=== PATIENT | female | born 1960 | race Two or more races ===

== ENCOUNTER 2017-10-25 10:37 | Inpatient (IN) | payer OTHER ==
[~2017-10-25] VITALS: Ht 170.2 cm; Wt 67.8 kg
[2017-10-25] MEDS ORDERED: ONDANSETRON 2MG/ML, 2ML ONE (10:55)
[2017-10-25] MEDS ORDERED: FAMOTIDINE 20 MG/2 ML ONE (10:55)
[2017-10-25] MEDS ORDERED: MORPHINE SULFATE 4 MG/ML, 1ML ONE ×2 (10:55→13:24)
[2017-10-25] MEDS ORDERED: PLEASE ENTER HEIGHT AND WEIGHT MC SCH (11:00)
[2017-10-25] MEDS ORDERED: SODIUM CHLORIDE FLUSH 10ML SYR IVF ONE (11:00)
[2017-10-25] MEDS ORDERED: FAMOTIDINE 20 MG/2 ML IVP ONE (11:00)
[2017-10-25] MEDS ORDERED: SODIUM CHLORIDE 0.9% 1,000ML IVBOLUS ONE (11:00)
[2017-10-25] MEDS ORDERED: PLEASE ENTER ALLERGIES MC SCH (11:00)
[2017-10-25] MEDS ORDERED: ONDANSETRON 2MG/ML, 2ML IVPush ONE (11:00)
[2017-10-25] MEDS: MORPHINE SULFATE 4 MG/ML, 1ML IVPush PRN ×2 (11:06→13:38)
[2017-10-25 11:24] LABS: BASOPHILS # (AUTO) 0.03 x10^3/uL (0-0.1); BASOPHILS % (AUTO) 0 % (0-1); EOSINOPHILS % (AUTO) 0 % (1-7); LYMPHOCYTES # (AUTO) 1.38 x10^3/uL (1-3.4); LYMPHOCYTES % (AUTO) 10 % (22-44); MD NO; MEAN CORPUSCULAR HEMOGLOBIN 29.4 pg (27.0-34.8); MEAN CORPUSCULAR HGB CONC 33.6 g/dL (32.4-35.8); MEAN CORPUSCULAR VOLUME 87.6 fL (80-100); MONOCYTES # (AUTO) 0.32 x10^3/uL (0.2-0.8); MONOCYTES % (AUTO) 2 % (2-9); NEUTROPHILS # (AUTO) 11.64 x10^3/uL (1.8-6.8); NEUTROPHILS % (AUTO) 87 % (42-75); PLATELET COUNT 259 x10^3/uL (130-400)
[2017-10-25 11:37] LABS: ALANINE AMINOTRANSFERASE 30 U/L (12-78); ALBUMIN 4.3 g/dL (3.4-5.0); ANION GAP 13 mmol/L (5-15); CHLORIDE 105 mmol/L (98-107); CREATININE 0.77 mg/dL (0.55-1.02)
[2017-10-25 11:39] LABS: ALKALINE PHOSPHATASE 162 U/L (45-117); BILIRUBIN,TOTAL 0.5 mg/dL (0.2-1.0); TOTAL PROTEIN 9.1 g/dL (6.4-8.2)
[2017-10-25] MEDS ORDERED: OMNIPAQUE 350 MG/ML, 100ML BOTTLE ONE (12:14)
[2017-10-25] MEDS ORDERED: BENZOCAINE 20% SPRAY 0.5ML ONE (13:24)
[2017-10-25] MEDS ORDERED: BENZOCAINE 20% SPRAY 0.5ML TP ONE (13:30)
[2017-10-25 14:38] VITALS: BP 113/73
[2017-10-25] MEDS ORDERED: morphine SULFATE 10 MG/ML, 1ML IVPush PRN (17:00)
[2017-10-25] MEDS ORDERED: ONDANSETRON 2MG/ML, 2ML IVPush PRN (17:00)
[2017-10-25] MEDS ORDERED: KETOROLAC 30 MG/1 ML IVPush ONE (17:00)
[2017-10-25] MEDS: D5%-LR+KCL 20MEQ 1,000 ML IV SCH (17:37)
[2017-10-25 18:39] LABS: MICROSCOPIC NOT IND
[2017-10-25 18:49] LABS: CULTURE INDICATED? NO
[2017-10-25 19:22] VITALS: BP 101/63
[2017-10-26] MEDS: D5%-LR+KCL 20MEQ 1,000 ML IV SCH ×3 (00:57→20:09)
[2017-10-26 01:33] VITALS: BP 97/58
[2017-10-26 06:52] VITALS: BP 104/64
[2017-10-26] MEDS: FAMOTIDINE 20 MG/2 ML IVPush SCH ×2 (09:54→20:10)
[2017-10-26 12:46] VITALS: BP 94/54
[2017-10-26 13:36] LABS: ANION GAP 7 mmol/L (5-15); CALCIUM 8.7 mg/dL (8.5-10.1); CHLORIDE 111 mmol/L (98-107)
[2017-10-26 13:37] LABS: CREATININE 0.66 mg/dL (0.55-1.02)
[2017-10-26 19:26] VITALS: BP 98/52
[2017-10-27 03:35] VITALS: BP 102/65
[2017-10-27] MEDS: D5%-LR+KCL 20MEQ 1,000 ML IV SCH (05:10)
[2017-10-27 07:00] VITALS: BP 123/79
[2017-10-27] MEDS: FAMOTIDINE 20 MG/2 ML IVPush SCH (08:53)
[2017-10-27 14:48] VITALS: BP 128/74
== END 2017-10-27 18:28 | disposition home or self-care (01) | DRG 390 ==
LOC: ED 11:23 → EDIP 13:19 → 3NE 14:35
PROVIDERS: ADMIT Hospitalist; ATTEND Hospitalist
PROC: 0D9670Z Drainage of Stomach with Drainage Device, Via Natural or Artificial Opening (ICD-10-PCS; principal; 2017-10-25)
DX: K56.51 Intestinal adhesions [bands], with partial obstruction (principal)
CPT/HCPCS: 36415; 74177; 80048; 80053; 81003; 83690; 83735; 85025; 93005; 96374; 96375; 96376; J1885; J2405; Q9967; J2270; J3480; J7030; S0028

== ENCOUNTER 2018-05-03 16:38 | Emergency (ER) | payer SELFPAY ==
[~2018-05-03] VITALS: Ht 162.6 cm; Wt 76.0 kg
[2018-05-03 16:47] VITALS: BP 133/83
== END 2018-05-03 18:04 | disposition home or self-care (01) ==
LOC: ED 17:58
DX: M79.645 Pain in left finger(s) (principal)
CPT/HCPCS: 29130; 99284

== ENCOUNTER 2020-03-18 01:43 | Inpatient (IN) | payer SELFPAY ==
[~2020-03-18] VITALS: Ht 170.2 cm; Wt 82.8 kg
[2020-03-18] MEDS ORDERED: SODIUM CHLORIDE FLUSH 10ML SYR IVF ONE (02:00)
[2020-03-18] MEDS ORDERED: ONDANSETRON 2MG/ML, 2ML IVPush ONE (02:00)
[2020-03-18] MEDS ORDERED: ONDANSETRON 2MG/ML, 2ML ONE ×2 (02:11→05:17)
[2020-03-18] MEDS ORDERED: MORPHINE SULFATE 4 MG/ML, 1ML ONE ×3 (02:12→05:18)
[2020-03-18] MEDS: MORPHINE SULFATE 4 MG/ML, 1ML IVPush PRN ×2 (02:15→04:31)
--- NOTE | 2020-03-18 02:17 | NUR ---
PT. PRESENTED TO ED WITH C/O DIFFUSE ABD PAIN AND NAUSEA SINCE 1200 THAT HAS BEEN GETTING INCREASINGLY WORSE SINCE THEN. 1 EPISODE OF VOMITING PER DAUGHTER "SHE MADE HERSELF VOMIT THINKING IT WOULD HELP HER FEEL BETTER." PT. REPORTS NORMAL BM AROUND 1200 ALSO. ONLY ABD HX OF HERNIA REPAIR. STATES THIS PAIN IS MUCH DIFFERENT. DAUGHTER AT BS FOR SUPPORT. HEART, SPO2, AND B/P MONITORS IN PLACE. CALL LIGHT IN REACH. PT. AWARE OF NEED FOR UA WHEN ABLE TO PROVIDE. PT. HAS BEEN MEDICATED PER OCT FOR REPORTED [address]
--- NOTE | 2020-03-18 02:38 | NUR ---
PT AMBULATORY TO BATHROOM, STEADY GAIT.
[2020-03-18 02:40] LABS: BASOPHILS # (AUTO) 0.03 x10^3/uL (0-0.1); BASOPHILS % (AUTO) 0 % (0-1); EOSINOPHILS # (AUTO) 0.05 x10^3/uL (0-0.4); EOSINOPHILS % (AUTO) 1 % (1-7); LYMPHOCYTES # (AUTO) 2.55 x10^3/uL (1-3.4); LYMPHOCYTES % (AUTO) 22 % (22-44); MD NO; MEAN CORPUSCULAR HEMOGLOBIN 29.8 pg (27.0-34.8); MEAN CORPUSCULAR HGB CONC 33.5 g/dL (32.4-35.8); MEAN CORPUSCULAR VOLUME 89.1 fL (80-100); MEAN PLATELET VOLUME 9.6 fL (7.4-10.4); MONOCYTES # (AUTO) 0.52 x10^3/uL (0.2-0.8); MONOCYTES % (AUTO) 5 % (2-9); NEUTROPHILS # (AUTO) 8.29 x10^3/uL (1.8-6.8); NEUTROPHILS % (AUTO) 73 % (42-75); PLATELET COUNT 252 x10^3/uL (130-400); RED BLOOD COUNT 5.04 x10^6/uL (3.82-5.3); RED CELL DISTRIBUTION WIDTH 13.1 % (9.6-15.2)
--- NOTE | 2020-03-18 02:41 | NUR ---
REPORT TO BRENNAN SMYTH TO ASSUME CARE OF PT.
[2020-03-18 02:51] LABS: ALBUMIN 4.4 g/dL (3.4-5.0); CALCIUM 10.6 mg/dL (8.5-10.1); CHLORIDE 107 mmol/L (98-107)
--- NOTE | 2020-03-18 03:04 | NUR ---
PT WAS AMBULATORY TO BATHROOM WITH STEADY GAIT TO PROVIDE UA.
[2020-03-18 03:15] LABS: MICROSCOPIC AUTO
[2020-03-18 03:36] LABS: ALANINE AMINOTRANSFERASE 34 U/L (12-78); ALKALINE PHOSPHATASE 144 U/L (45-117); ANION GAP 12 mmol/L (5-15); BILIRUBIN,TOTAL 0.4 mg/dL (0.2-1.0); CREATININE 0.76 mg/dL (0.55-1.02); TOTAL PROTEIN 9.1 g/dL (6.4-8.2)
--- NOTE | 2020-03-18 03:54 | NUR ---
PT TO IMAGING.
[2020-03-18] MEDS ORDERED: OMNIPAQUE 350 MG/ML, 100ML BOTTLE ONE (04:03)
--- NOTE | 2020-03-18 04:45 | NUR ---
PT LAYING IN BED, VOMIT BAG IN HAND BUT NOT ACTIVELY VOMITTING. RESPIRATIONS EVEN AND UNLABORED, STATES RELIEF FROM PAIN. DAUGHTER REMAINS AT BEDSIDE.
[2020-03-18] MEDS ORDERED: SODIUM CHLORIDE 0.9% 1,000 ML IV ONE (05:09)
[2020-03-18] MEDS ORDERED: ONDANSETRON 2MG/ML, 2ML IVPush PRN ×2 (05:30)
[2020-03-18] MEDS ORDERED: morphine SULFATE 10 MG/ML, 1ML IVPush PRN (05:30)
[2020-03-18] MEDS ORDERED: SODIUM CHLORIDE 0.9% 1,000ML IVBOLUS ONE (05:30)
[2020-03-18] MEDS ORDERED: MORPHINE SULFATE 4 MG/ML, 1ML IVPush PRN (05:30)
--- NOTE | 2020-03-18 05:47 | NUR ---
PT TOLERATED NG TUBE INSERT WELL. ADMITTING MD AT BEDSIDE NOW WITH TRANSLATION SERVICES.
--- NOTE | 2020-03-18 06:03 | NUR ---
PT DENIES PAIN, STATES HER STOMACH IS FEELING BETTER, ALL NEEDS MET AT THIS TIME. REPORT GIVEN TO LUCIA, FLOOR RN.
[2020-03-18] MEDS: LACTATED RINGERS 1,000 ML IV SCH ×3 (09:10→23:22)
[2020-03-18 09:12] VITALS: BP 131/80
[2020-03-18] MEDS: HEPARIN 5,000 UNITS/ML, 1ML SQ SCH ×2 (10:47→18:00)
[2020-03-18 11:11] LABS: BASOPHILS # (AUTO) 0.02 x10^3/uL (0-0.1); BASOPHILS % (AUTO) 0 % (0-1); EOSINOPHILS % (AUTO) 0 % (1-7); LYMPHOCYTES # (AUTO) 1.13 x10^3/uL (1-3.4); LYMPHOCYTES % (AUTO) 11 % (22-44); MD NO; MEAN CORPUSCULAR HEMOGLOBIN 29.5 pg (27.0-34.8); MEAN CORPUSCULAR HGB CONC 32.9 g/dL (32.4-35.8); MEAN CORPUSCULAR VOLUME 89.7 fL (80-100); MEAN PLATELET VOLUME 8.8 fL (7.4-10.4); MONOCYTES # (AUTO) 0.42 x10^3/uL (0.2-0.8); MONOCYTES % (AUTO) 4 % (2-9); NEUTROPHILS # (AUTO) 8.44 x10^3/uL (1.8-6.8); NEUTROPHILS % (AUTO) 84 % (42-75); PLATELET COUNT 234 x10^3/uL (130-400); RED BLOOD COUNT 4.59 x10^6/uL (3.82-5.3); RED CELL DISTRIBUTION WIDTH 13.2 % (9.6-15.2)
[2020-03-18 11:23] LABS: ALBUMIN 3.5 g/dL (3.4-5.0); ANION GAP 6 mmol/L (5-15); CALCIUM 8.9 mg/dL (8.5-10.1); CHLORIDE 111 mmol/L (98-107)
[2020-03-18 12:14] LABS: ALANINE AMINOTRANSFERASE 27 U/L (12-78); ALKALINE PHOSPHATASE 128 U/L (45-117); BILIRUBIN,TOTAL 0.3 mg/dL (0.2-1.0); CREATININE 0.61 mg/dL (0.55-1.02); TOTAL PROTEIN 7.8 g/dL (6.4-8.2)
[2020-03-18 13:56] VITALS: BP 122/66
[2020-03-18 21:20] VITALS: BP 114/73
[2020-03-19 01:24] VITALS: BP 116/66
[2020-03-19] MEDS: HEPARIN 5,000 UNITS/ML, 1ML SQ SCH ×3 (02:00→18:12)
[2020-03-19 05:22] LABS: BASOPHILS # (AUTO) 0.01 x10^3/uL (0-0.1); BASOPHILS % (AUTO) 0 % (0-1); EOSINOPHILS # (AUTO) 0.06 x10^3/uL (0-0.4); EOSINOPHILS % (AUTO) 1 % (1-7); LYMPHOCYTES # (AUTO) 2.37 x10^3/uL (1-3.4); LYMPHOCYTES % (AUTO) 39 % (22-44); MD NO; MEAN CORPUSCULAR HGB CONC 33.5 g/dL (32.4-35.8); MEAN CORPUSCULAR VOLUME 89.6 fL (80-100); MEAN PLATELET VOLUME 8.7 fL (7.4-10.4); MONOCYTES # (AUTO) 0.49 x10^3/uL (0.2-0.8); MONOCYTES % (AUTO) 8 % (2-9); NEUTROPHILS # (AUTO) 3.24 x10^3/uL (1.8-6.8); NEUTROPHILS % (AUTO) 53 % (42-75); PLATELET COUNT 198 x10^3/uL (130-400); RED BLOOD COUNT 4.16 x10^6/uL (3.82-5.3); RED CELL DISTRIBUTION WIDTH 13.1 % (9.6-15.2)
[2020-03-19 05:30] LABS: ALBUMIN 3.2 g/dL (3.4-5.0); ANION GAP 3 mmol/L (5-15); CALCIUM 8.8 mg/dL (8.5-10.1); CHLORIDE 110 mmol/L (98-107)
[2020-03-19 05:36] LABS: ALANINE AMINOTRANSFERASE 26 U/L (12-78); ALKALINE PHOSPHATASE 113 U/L (45-117); BILIRUBIN,TOTAL 0.4 mg/dL (0.2-1.0); CREATININE 0.56 mg/dL (0.55-1.02); TOTAL PROTEIN 6.8 g/dL (6.4-8.2)
[2020-03-19] MEDS: LACTATED RINGERS 1,000 ML IV SCH ×3 (05:57→19:09)
[2020-03-19 07:55] VITALS: BP 123/73
[2020-03-19 13:43] VITALS: BP 133/77
[2020-03-19 21:34] VITALS: BP 130/67
[2020-03-20 01:32] VITALS: BP 119/70
[2020-03-20] MEDS: HEPARIN 5,000 UNITS/ML, 1ML SQ SCH ×2 (01:35→10:00)
[2020-03-20] MEDS: LACTATED RINGERS 1,000 ML IV SCH (03:47)
[2020-03-20 07:33] LABS: BASOPHILS # (AUTO) 0.01 x10^3/uL (0-0.1); BASOPHILS % (AUTO) 0 % (0-1); EOSINOPHILS # (AUTO) 0.04 x10^3/uL (0-0.4); EOSINOPHILS % (AUTO) 1 % (1-7); LYMPHOCYTES # (AUTO) 1.98 x10^3/uL (1-3.4); LYMPHOCYTES % (AUTO) 29 % (22-44); MD NO; MEAN CORPUSCULAR HEMOGLOBIN 29.8 pg (27.0-34.8); MEAN CORPUSCULAR HGB CONC 33.3 g/dL (32.4-35.8); MEAN CORPUSCULAR VOLUME 89.5 fL (80-100); MEAN PLATELET VOLUME 8.9 fL (7.4-10.4); MONOCYTES # (AUTO) 0.52 x10^3/uL (0.2-0.8); MONOCYTES % (AUTO) 8 % (2-9); NEUTROPHILS % (AUTO) 62 % (42-75); PLATELET COUNT 188 x10^3/uL (130-400); RED BLOOD COUNT 4.16 x10^6/uL (3.82-5.3); RED CELL DISTRIBUTION WIDTH 13.1 % (9.6-15.2)
[2020-03-20 07:39] LABS: ANION GAP 5 mmol/L (5-15); CALCIUM 8.8 mg/dL (8.5-10.1); CHLORIDE 107 mmol/L (98-107); CREATININE 0.49 mg/dL (0.55-1.02)
[2020-03-20 07:44] VITALS: BP 130/76
== END 2020-03-20 16:57 | disposition home or self-care (01) | DRG 388 ==
LOC: ED 04:12 → EDIP 05:10 → 3N 08:29
PROVIDERS: ADMIT Family Medicine; ATTEND Family Medicine
PROC: 0D9670Z Drainage of Stomach with Drainage Device, Via Natural or Artificial Opening (ICD-10-PCS; principal; 2020-03-18)
DX: K56.52 Intestinal adhesions [bands] with complete obstruction (principal); N17.0 Acute kidney failure with tubular necrosis; D72.829 Elevated white blood cell count, unspecified; E86.0 Dehydration; K76.0 Fatty (change of) liver, not elsewhere classified; R73.9 Hyperglycemia, unspecified
CPT/HCPCS: 36415; 74018; 74177; 80048; 80053; 81001; 83036; 83605; 83690; 85025; 87086; 93005; 96361; 96374; 96375; 96376; G0378; J1644; J2405; Q9967; J2270; J7030; J7120